=== PATIENT | male | born 1965 | race Caucasian/White ===

== ENCOUNTER 2024-09-16 20:58 | Emergency (ER) | payer OTHER ==
[2024-09-16 21:15] VITALS: BP 146/98; TEMP 98.4; BMI 25.6
[2024-09-16 22:06] LABS: HEMATOCRIT 41.5 % (40.1-51.0); MCHC 33.7 g/dl (32.3-36.5); MEAN CELL VOLUME 92.2 fl (79.0-92.2); PLATELET COUNT 279 x10^3/uL (163-337); RDW 14.4 % (12.2-16.1)
[2024-09-16 22:08] LABS: INR 1.06 (0.83-1.09); PROTHROMBIN TIME (PATIENT) 11.7 SEC (9.7-13.0)
[2024-09-16 22:11] LABS: ACTIVATED PTT 35.3 SECONDS (25.2-36.5)
[2024-09-16 22:31] LABS: CHLORIDE 106 mmol/L (98-107); SODIUM 141 mmol/L (136-145)
[2024-09-16 22:33] LABS: CALCIUM 9.8 mg/dL (8.5-10.1)
[2024-09-16 22:34] LABS: ALBUMIN 4.6 g/dl (3.4-5.0); ANION GAP 11 mmol/L (4-13); CO2 24 mmol/L (21-32); GLUCOSE,RANDOM 91 mg/dL (74-106)
[2024-09-16 22:38] LABS: CREATININE 1.2 mg/dL (0.55-1.3); SGOT/AST 24 U/L (15-37); SGPT/ALT 25 U/L (13-61)
[2024-09-16 22:39] LABS: BILIRUBIN,TOTAL 0.4 mg/dL (0.2-1); TOT PROT 7.7 g/dl (6.4-8.2)
[2024-09-16 22:40] LABS: ALK PHOS 116 U/L (45-117)
[2024-09-16] MEDS ORDERED: ACETAMINOPHEN 325 MG TABLET (FP) ONE (23:00)
[2024-09-16] MEDS ORDERED: CycloBENZAprine HCL 5 MG TABLET ONE (23:00)
[2024-09-16] MEDS ORDERED: LIDOCAINE 5% TOPICAL PATCH ONE (23:01)
[2024-09-16] MEDS ORDERED: KETOROLAC TROMETHAMINE 15 MG/ML VIAL ONE (23:01)
[2024-09-16] MEDS: KETOROLAC TROMETHAMINE 15 MG/ML VIAL IVPUSH ONE (23:06)
[2024-09-16] MEDS: LIDOCAINE 5% TOPICAL PATCH TP ONE (23:06)
[2024-09-16] MEDS: CycloBENZAprine HCL 10 MG TABLET (FP) PO ONE (23:06)
[2024-09-16] MEDS: ACETAMINOPHEN 500 MG TABLET (FP) PO ONE (23:07)
[2024-09-16] MEDS: LIDOCAINE PATCH REMOVAL MC SCH (23:21)
[2024-09-16] MEDS: KETOROLAC TROMETHAMINE 15 MG/ML VIAL IM ONE (23:21)
[2024-09-16 23:23] VITALS: PULSE 88; RESP 18
== END 2024-09-17 00:24 | disposition home or self-care (01) ==
LOC: JER 20:58
PROC: 3E0333Z Introduction of Anti-inflammatory into Peripheral Vein, Percutaneous Approach (ICD-10-PCS; principal; 2024-09-16)
DX: R06.02 Shortness of breath (principal); M54.2 Cervicalgia; R00.0 Tachycardia, unspecified; R09.02 Hypoxemia
CPT/HCPCS: 0241U-QW; 36415; 71045-TC-FY; 80053; 82550; 82553; 83735; 84484; 85027; 85610; 85730; 93005; 93010; 99285-25

== ENCOUNTER 2025-02-07 12:03 | Observation (INO) | payer OTHER ==
[2025-02-07] MEDS ORDERED: methylPREDNISolone NA SUCC 125 MG/2 ML VIAL ONE (13:10)
[2025-02-07] MEDS ORDERED: ALBUTEROL SO4 2.5/IPRATROPIUM 0.5 INH SOL 3 ML VIAL.NEB. NEB ONE (13:10)
[2025-02-07] MEDS: methylPREDNISolone NA SUCC 125 MG/2 ML VIAL IVPUSH ONE (13:16)
[2025-02-07] MEDS: ALBUTEROL SO4 2.5/IPRATROPIUM 0.5 INH SOL 3 ML VIAL.NEB. NEB ONE ×2 (13:16)
[2025-02-07 13:18] LABS: ABSOLUTE IMMATURE GRANULOCYTES 0.05 x10^3/uL (0.0-0.031); BASOPHILS # 0.03 x10^3/uL (0.01-0.08); EOSINOPHIL % 0.7 % (0.8-7.0); EOSINOPHILS # 0.08 x10^3/uL (0.04-0.54); MCHC 32.4 g/dl (32.3-36.5); MEAN CELL VOLUME 91.3 fl (79.0-92.2); MEAN PLT VOLUME 9.2 fl (9.4-12.4); MONOCYTE # 0.72 x10^3/uL (0.30-0.82); MONOCYTE % 6.4 % (5.3-12.2); RDW 14.6 % (12.2-16.1)
[2025-02-07 13:25] LABS: BG HCT 44.0 % (35.4-49); VENOUS BASE EXCESS 0.0 mmol/L (-2-2); VENOUS O2 SATURATION 71.0 % (70-80); VENOUS PCO2 35.8 mmHg (38-52); VENOUS PH 7.439 (7.310-7.410)
[2025-02-07 13:45] LABS: GLUCOSE,RANDOM 92.0 mg/dL (74-106)
[2025-02-07 13:46] LABS: TOT PROT 6.6 g/dl (6.4-8.2)
[2025-02-07 13:47] LABS: CO2 22.0 mmol/L (21-32)
[2025-02-07 13:48] LABS: ALK PHOS 85.0 U/L (40-150)
[2025-02-07 13:51] LABS: CREATININE 0.81 mg/dL (0.55-1.3); SGOT/AST 22.0 U/L (5-34); SGPT/ALT 17.0 U/L (0-55)
[2025-02-07 14:13] LABS: HCV DIAGNOSTIC IN-HOUSE W/RFLX NON-REACTIVE (NONREACTIVE); HIV INTERPRETATION NEGATIVE (NEGATIVE)
[2025-02-07] MEDS ORDERED: guaiFENesin/D-METHORPHAN HB 10 ML UNIT-DOSE CUPS ONE (16:44)
[2025-02-07] MEDS: guaiFENesin 200 MG/10 ML 10 ML UNIT-DOSE CUPS PO ONE ×2 (16:50→23:46)
[2025-02-07] MEDS ORDERED: ALBUTEROL SO4 0.083% IH SOL 2.5 MG/3 ML VIAL.NEB. NEB PRN (17:24)
[2025-02-07] MEDS: ALBUTEROL SO4 2.5/IPRATROPIUM 0.5 INH SOL 3 ML VIAL.NEB. NEB SCH (21:29)
[2025-02-07] MEDS: MELATONIN 5 MG TABLETS PO ONE (23:12)
[2025-02-07] MEDS: FAMOTIDINE 20 MG TABLET PO ONE (23:13)
[2025-02-07] MEDS: ACETAMINOPHEN 1000 MG/100 ML BAG IVPB ONE (23:13)
[2025-02-07] MEDS: HEPARIN NA (PORCINE) 5,000 UNITS/ML 1ML VIAL SQ SCH (23:14)
[2025-02-08 00:26] VITALS: BMI 26.4
[2025-02-08] MEDS: MAG HYDROX/AL HYDROX/SIMETH 30 ML UNIT-DOSE CUP PO ONE (05:51)
[2025-02-08] MEDS: LEVOTHYROXINE NA 100 MCG TABLET (FP) PO SCH (06:31)
[2025-02-08] MEDS: TAMSULOSIN HCL 0.4 MG CAP PO SCH (09:04)
[2025-02-08] MEDS: predniSONE 20 MG TABLET (UD) PO SCH (09:06)
[2025-02-08] MEDS ORDERED: guaiFENesin 200 MG/10 ML 10 ML UNIT-DOSE CUPS PO PRN (09:15)
[2025-02-08] MEDS: ACETAMINOPHEN 325 MG TABLET (FP) PO PRN (09:41)
[2025-02-08] MEDS: NICOTINE POLACRILEX 2 MG LOZENGE BC SCH (09:43)
[2025-02-08] MEDS: guaiFENesin/CODEINE 10 ML UNIT-DOSE CUPS PO PRN (09:44)
[2025-02-08 10:52] LABS: ABSOLUTE IMMATURE GRANULOCYTES 0.05 x10^3/uL (0.0-0.031); BASOPHILS # 0.02 x10^3/uL (0.01-0.08); EOSINOPHIL % 0.5 % (0.8-7.0); EOSINOPHILS # 0.06 x10^3/uL (0.04-0.54); MCHC 32.1 g/dl (32.3-36.5); MEAN CELL VOLUME 92.6 fl (79.0-92.2); MEAN PLT VOLUME 9.6 fl (9.4-12.4); MONOCYTE # 0.95 x10^3/uL (0.30-0.82); MONOCYTE % 7.6 % (5.3-12.2); RDW 14.6 % (12.2-16.1)
[2025-02-08 11:22] LABS: GLUCOSE,RANDOM 100.0 mg/dL (74-106)
[2025-02-08 11:23] LABS: CO2 23.0 mmol/L (21-32)
[2025-02-08 11:28] LABS: CREATININE 0.9 mg/dL (0.55-1.3)
[2025-02-08] MEDS: KETOROLAC TROMETHAMINE 15 MG/ML VIAL IVPUSH ONE (16:57)
[2025-02-08] MEDS: ACETAMINOPHEN/CAFFEINE/BUTALBITAL 1 TAB PO PRN (22:10)
[2025-02-09] MEDS: MELATONIN 5 MG TABLETS PO ONE (00:20)
[2025-02-09] MEDS: FLUTICASONE PROP 0.05% 16 GM NASAL SPRAY NS SCH (00:40)
[2025-02-09] MEDS: DOCUSATE SODIUM 100 MG CAPSULE (FP) PO ONE (06:51)
[2025-02-09 08:10] LABS: MCHC 32.0 g/dl (32.3-36.5); MEAN CELL VOLUME 92.0 fl (79.0-92.2); MEAN PLT VOLUME 9.5 fl (9.4-12.4); RDW 14.6 % (12.2-16.1)
[2025-02-09 08:32] LABS: GLUCOSE,RANDOM 92.0 mg/dL (74-106); TOT PROT 6.0 g/dl (6.4-8.2)
[2025-02-09 08:33] LABS: CO2 24.0 mmol/L (21-32)
[2025-02-09 08:35] LABS: ALK PHOS 70.0 U/L (40-150)
[2025-02-09 08:38] LABS: CREATININE 0.88 mg/dL (0.55-1.3); SGOT/AST 17.0 U/L (5-34); SGPT/ALT 14.0 U/L (0-55)
[2025-02-09 08:48] LABS: IRON SERUM 52.0 ug/dL (50-175)
[2025-02-09] MEDS: PANTOPRAZOLE 40 MG TABLET PO SCH (10:28)
[2025-02-09] MEDS: ENOXAPARIN NA (PORCINE) 40 MG/0.4 ML DISP.SYRIN SQ SCH (10:28)
[2025-02-09] MEDS: BISACODYL 5 MG TABLET.DR (FP) PO ONE (13:06)
[2025-02-09] MEDS: guaiFENesin/CODEINE 10 ML UNIT-DOSE CUPS PO PRN (16:12)
[2025-02-09] MEDS: NICOTINE POLACRILEX 2 MG GUM BUC PRN (16:12)
[2025-02-09] MEDS: ALBUTEROL SO4 2.5/IPRATROPIUM 0.5 INH SOL 3 ML VIAL.NEB. NEB PRN (20:05)
[2025-02-09] MEDS: CODEINE SO4 30 MG TABLET PO SCH (21:04)
[2025-02-09] MEDS: traZODone HCL 50 MG TABLET (FP) PO SCH (21:06)
[2025-02-10] MEDS: LEVOTHYROXINE NA 112 MCG TABLET (FP) PO SCH (06:42)
[2025-02-10 09:09] LABS: ABSOLUTE IMMATURE GRANULOCYTES 0.06 x10^3/uL (0.0-0.031); BASOPHILS # 0.02 x10^3/uL (0.01-0.08); EOSINOPHIL % 0.5 % (0.8-7.0); EOSINOPHILS # 0.05 x10^3/uL (0.04-0.54); MCHC 32.2 g/dl (32.3-36.5); MEAN CELL VOLUME 91.9 fl (79.0-92.2); MEAN PLT VOLUME 9.5 fl (9.4-12.4); MONOCYTE # 0.58 x10^3/uL (0.30-0.82); MONOCYTE % 5.4 % (5.3-12.2); RDW 14.4 % (12.2-16.1)
[2025-02-10] MEDS: FLUTICASONE/UMECLIDIN/VILANTER(100-62.5-25 TRELEGY ELLIPTA) INAHLER IH SCH (09:18)
[2025-02-10 10:01] LABS: GLUCOSE,RANDOM 131.0 mg/dL (74-106)
[2025-02-10 10:02] LABS: CO2 23.0 mmol/L (21-32); TOT PROT 6.4 g/dl (6.4-8.2)
[2025-02-10 10:04] LABS: ALK PHOS 72.0 U/L (40-150)
[2025-02-10 10:07] LABS: CREATININE 0.93 mg/dL (0.55-1.3); SGOT/AST 20.0 U/L (5-34); SGPT/ALT 16.0 U/L (0-55)
[2025-02-10] MEDS: ESCITALOPRAM OXALATE 10 MG TABLET PO SCH (10:55)
[2025-02-10] MEDS: diphenhydrAMINE HCL 25 MG CAPSULE (FP) PO ONE (17:01)
[2025-02-10] MEDS ORDERED: diphenhydrAMINE HCL 25 MG CAPSULE (FP) PO PRN (19:39)
[2025-02-10] MEDS: CALAMINE 8% TOPICAL LOTION 177 ML BOTTLE TP SCH (21:06)
[2025-02-10] MEDS: MELATONIN 5 MG TABLETS PO ONE (22:02)
[2025-02-11] MEDS: DOCUSATE SODIUM 100 MG CAPSULE (FP) PO ONE (03:29)
[2025-02-11 10:57] VITALS: RESP 19; TEMP 98.4
[2025-02-11 15:58] VITALS: BP 130/78; PULSE 84
== END 2025-02-11 17:10 ==
LOC: JER 12:03 → JERBED 17:18 → J6S 20:26
PROVIDERS: ADMIT Internal Medicine; ATTEND Internal Medicine
PROC: 3E033NZ Introduction of Analgesics, Hypnotics, Sedatives into Peripheral Vein, Percutaneous Approach (ICD-10-PCS; principal; 2025-02-07)
PROC: 3E0F7GC Introduction of Other Therapeutic Substance into Respiratory Tract, Via Natural or Artificial Opening (ICD-10-PCS; 2025-02-07)
PROC: 3E023GC Introduction of Other Therapeutic Substance into Muscle, Percutaneous Approach (ICD-10-PCS; 2025-02-07)
PROC: 3E0333Z Introduction of Anti-inflammatory into Peripheral Vein, Percutaneous Approach (ICD-10-PCS; 2025-02-07)
DX: J44.1 Chronic obstructive pulmonary disease with (acute) exacerbation (principal); R05.3 Chronic cough; D72.829 Elevated white blood cell count, unspecified; N40.0 Benign prostatic hyperplasia without lower urinary tract symptoms; D50.9 Iron deficiency anemia, unspecified; F32.A Depression, unspecified; Z87.11 Personal history of peptic ulcer disease; F17.210 Nicotine dependence, cigarettes, uncomplicated; Z88.0 Allergy status to penicillin; Z59.00 Homelessness unspecified
CPT/HCPCS: 36415; 70491-TC; 71046-TC-FY; 71250-TC; 80048; 80053; 82728; 82803; 83540; 83550; 83735; 84100; 84439; 84443; 85025; 85027; 86803; 87389; 87637-QW; 93005; 93010; 94640; 96372; 96374; 96375; 97116-GP; 97161-GP; 99285-25; G0378; Q9967